=== PATIENT | male | born 1990 | race African-American/Black ===

== ENCOUNTER 2019-05-07 01:51 | Emergency (ER) | payer OTHER ==
[~2019-05-07] VITALS: Ht 182.9 cm; Wt 113.4 kg
[2019-05-07] MEDS ORDERED: ONDANSETRON ODT 4 MG TAB.RAPDIS ONE (02:15)
[2019-05-07] MEDS ORDERED: ONDANSETRON ODT 4 MG TAB.RAPDIS PO ONE (02:15)
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
[2019-05-07] MEDS ORDERED: ACETAMINOPHEN 325 MG TABLET PO ONE ×2 (02:53→03:00)
[2019-05-07 02:58] VITALS: BP 140/87
== END 2019-05-07 02:59 | disposition home or self-care (01) ==
LOC: ER 01:51
DX: J02.8 Acute pharyngitis due to other specified organisms (principal); B97.89 Other viral agents as the cause of diseases classified elsewhere
CPT/HCPCS: 87070; 87880; 99283; Q0162

== ENCOUNTER → 2019-05-29 | Outpatient (CLI) | payer OTHER ==
[2019-05-07 02:58] VITALS: BP 140/87
--- NOTE | 2019-05-29 13:43 | RAD ---
EXAM: Right hand, 3 views. HISTORY: Pain. COMPARISON: None. FINDINGS: 3 views of the right hand are obtained. There is no fracture, dislocation or subluxation. IMPRESSION: No acute osseous finding. Electronically signed by: Jennifer Hedrick MD (05/29/2019 1:41 PM) [facility]
== END | disposition home or self-care (01) ==
LOC: EDSEX 10:30 → PMG 10:30
PROVIDERS: ATTEND Physician Assistant
DX: M79.641 Pain in right hand (principal)
CPT/HCPCS: 73130

== ENCOUNTER 2019-06-12 08:58 | Emergency (ER) | payer OTHER ==
[~2019-06-12] VITALS: Ht 182.9 cm; Wt 113.4 kg
[2019-06-12 09:03] VITALS: BP 143/82
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
== END 2019-06-12 09:30 | disposition home or self-care (01) ==
LOC: ER 08:58
DX: Z00.8 Encounter for other general examination (principal)
CPT/HCPCS: 99283